=== PATIENT | female | born 1950 | race Caucasian/White ===

== ENCOUNTER → 2017-04-16 | Outpatient (CLI) | payer OTHER ==
[~2017-04-16] MED LIST: ASPIR 8181 MG PO; ATENOLOL50 MG PO; BENICAR HCT 201 EACH PO; ESCITALOPRAM OX20 MG PO; NEXIUM40 MG PO; ZOLPIDEM TARTRA10 MG PO
--- NOTE | 2017-04-30 08:24 | Diagnostic Imaging Report ---
#[id number] - MGSCRBIL #BILATERAL DIGITAL SCREENING MAMMOGRAM WITH CAD: 04/16/2017 Comparison is made to exams dated: 10/11/2016 mammogram, 03/28/2016 mammogram and 02/14/2016 mammogram - [facility]. Current study contains 8 films. There are scattered fibroglandular elements in both breasts. Current study was also evaluated with a Computer Aided Detection (CAD) system. There are benign calcifications in both breasts. A cardiac device in the left chest partially obscures evaluation of the left axilla. No significant masses, calcifications, or other findings are seen in either breast. There has been no significant interval change. IMPRESSION: BENIGN There is no mammographic evidence of malignancy. A 1 year screening mammogram is recommended. The patient will be notified by letter of the results. Davian Rosales Jr., D.O. cw/:04/29/2017 11:04:29 Silver Buffer: Corie WALLACE(Vicenta)(Cash), [facility] letter sent: Compared to Prior B9 Mammogram BI-RADS: 2 Benign
== END ==
LOC: MAMMO 08:04
PROVIDERS: ATTEND Internal Medicine
DX: Z12.31 Encounter for screening mammogram for malignant neoplasm of breast (principal)
CPT/HCPCS: 77067

== ENCOUNTER → 2018-05-27 | Outpatient (CLI) | payer OTHER ==
--- NOTE | 2018-05-27 17:33 | Diagnostic Imaging Report ---
EXAM: CT Chest WITHOUT contrast INDICATION: ^CHEST PAIN. Left-sided pain x1 month. COMPARISON: None TECHNIQUE: Chest was scanned utilizing a multidetector helical scanner from the lung apex through the level of the adrenal glands without administration of IV contrast. Absence of intravenous contrast decreases sensitivity for detection of lymphadenopathy and vascular pathology. Coronal and sagittal reformations were obtained. Routine protocol was performed. IV CONTRAST: None COMPLICATIONS: None RADIATION DOSE: Total DLP: 527.39 mGy*cm Estimated effective dose: (DLP x 0.014 x size factor) mSv CTDIvol has been reviewed. It is below the limits set by the Radiation Protocol Committee (RPC). Dose modulation, iterative reconstruction, and/or weight based adjustment of the mA/kV was utilized to reduce the radiation dose to as low as reasonably achievable. FINDINGS: LINES/ TUBES: Left-sided ICD. LUNGS AND AIRWAYS: Mild subpleural reticulation predominantly along the lung bases. No bronchiectasis. Airways are normal. 5.3 mm nodule in the right lower lobe (series 3, image 74). 2.7 mm nodule in the left lower lobe (series 3, image 89). PLEURA: The pleural spaces are clear. HEART AND MEDIASTINUM: The thyroid gland is normal. No mediastinal, hilar or axillary lymphadenopathy. The heart is normal in size. There is no pericardial effusion. There are mild atherosclerotic calcifications in the aorta and coronary arteries. UPPER ABDOMEN: Unremarkable. BONES: The visualized bony thorax is within normal limits. SOFT TISSUES: Unremarkable. IMPRESSION: 1. No acute abnormalities identified. 2. Mild fibrosis in the lung bases, which is within normal limits for age. 3. 2 small pulmonary nodules. Recommend one-year follow-up chest CT. Signed by: Dr. Flaco Fry M.D. on 05/27/2018 5:30 PM
== END ==
LOC: CT 15:32
PROVIDERS: ATTEND Internal Medicine Interventional Cardiology
DX: R07.9 Chest pain, unspecified (principal)
CPT/HCPCS: 71250

== ENCOUNTER → 2018-06-19 | Outpatient (CLI) | payer OTHER | LOC: MAMMO 11:31 | PROVIDERS: ATTEND Obstetrics & Gynecology | DX: Z12.31 Encounter for screening mammogram for malignant neoplasm of breast (principal) | CPT/HCPCS: 77067 ==

== ENCOUNTER 2019-10-28 17:30 | Observation (INO) | payer OTHER ==
[~2019-10-28] VITALS: Ht 165.1 cm; Wt 93.0 kg
--- OUTSIDE RECORDS SUMMARY | 2019-10-28 18:07 | XMS REPORT | Continuity of Care Document ---
Author Author [facility] t Organization [facility] Address [address] [place] [phone] Phone Unavailable Care Team Providers Care Soft Metals Hand Engraver Name Role Phone JAIME MANZANO Attphys Unavailable PIOTRJEFF Attphys Unavailable EDMUND, VERNELL Attphys Unavailable Problems This patient has no known problems. Allergies, Adverse Reactions, Alerts This patient has no known allergies or adverse reactions. Medications This patient has no known medications. Procedures This patient has no known procedures. Results Test Description Test Time Test Comments Results Result Comments Source MAMMOGRAPHY DIGITAL SCR BILAT 2018-06-19 12:35:00 [place] [address] Patient Name: LEYDA CARLTON MR #: [id number] : 1950 Age/Sex: 68/F Req #: [id number] [facility] Physician: Ordered by: JAIME MANZANO MD Report #: [id number] Location: MAMMO Room/Bed: Procedure: [id number] MG/MAMMOGRAPHY DIGITAL SCR BILAT Exam Date: 06/19/18 Exam Time: 1216 REPORT STATUS: Signed #[id number] - MGSCRBIL #BILATERAL DIGITAL SCREENING MAMMOGRAM WITH CAD: 06/19/2018 CLINICAL: Routine screening. Comparison is made to exams dated: 04/16/2017 mammogram, 10/11/2016 mammogram and 03/28/2016 mammogram - [facility]. Current study contains 8 films. There are scattered fibroglandular elements in both breasts. Current study was also evaluated with a Computer Aided Detection (CAD) system. There are benign calcifications in both breasts. A cardiac device is again noted on the left side. No significant masses, calcifications, or other findings are seen in either breast. There has been no significant interval change. IMPRESSION: BENIGN There is no mammographic evidence of malignancy. A 1 year screening mammogram is recommended. The patient will be notified by letter of the results. Sloane Rosales Jr., D.O. cw/:07/08/2018 08:37:13 Construction Project Assistant: Corie VALDEZ)(M), [facility] letter sent: Compared to Prior B9 Mammogram BI-RADS: 2 Benign Dictated By: SLOANE ROSALES DO 0837 Transcribed By: ALVIN on 07/08/18 0837 COPY TO: JAIME MANZANO MD CT CHEST WO 2018-05-27 17:23:00 [place] [address] Patient Name: LEYDA CARLTON MR #: [id number] : 1950 Age/Sex: 68/F Req #: [id number] Adm Physician: Ordered by: JEFF SALDAÑA MD Report #: [id number] Location: CT Room/Bed: Procedure: [id number] CT/CT CHEST WO Exam Date: 05/27/18 Exam Time: 1620 REPORT STATUS: Signed EXAM: CT Chest WITHOUT contrast INDICATION: CHEST PAIN. Left-sided pain x1 month. COMPARISON: None TECHNIQUE: Chest was scanned utilizing a multidetector helical scanner from the lung apex through the level of the adrenal glands without administration of IV contrast. Absence of intravenous contrast decreases sensitivity for detection of lymphadenopathy and vascular pathology. Coronal and sagittal reformations were obtained. Routine protocol was performed. IV CONTRAST: None COMPLICATIONS: None RADIATION DOSE: Total DLP: 527.39 mGy*cm Estimated effective dose: (DLP x 0.014 x size factor) mSv CTDIvol has been reviewed. It is below the limits set by the Radiation Protocol Committee (RPC). Dose modulation, iterative reconstruction, and/or weight based adjustment of the mA/kV was utilized to reduce the radiation dose to as low as reasonably achievable. FINDINGS: LINES/ TUBES: Left- sided ICD. LUNGS AND AIRWAYS: Mild subpleural reticulation predominantly along the lung bases. No bronchiectasis. Airways are normal. 5.3 mm nodule in the right lower lobe (series 3, image 74). 2.7 mm nodule in the left lower lobe (series 3, image 89). PLEURA: The pleural spaces are clear. HEART AND MEDIASTINUM: The thyroid gland is normal. No mediastinal, hilar or axillary lymphadenopathy. The heart is normal in size. There is no pericardial effusion. There are mild atherosclerotic calcifications in the aorta and coronary arteries. UPPER ABDOMEN: Unremarkable. BONES: The visualized bony thorax is within normal limits. SOFT TISSUES: Unremarkable. IMPRESSION: 1. No acute abnormalities identified. 2. Mild fibrosis in the lung bases, which is within normal limits for age. 3. 2 small pulmonary nodules. Recommend one-year follow-up chest CT. Signed by: Dr. Miranda De Paz M.D. on 05/27/2018 5:30 PM Dictated By: MIRANDA DE PAZ MD 29 Transcribed By: ANNIA on 05/27/181729 COPY TO: JEFF SALDAÑA MD MAMMOGRAPHY DIGITAL SCR [place] [address] Patient Name: LEYDA CARLTON MR #: [id number] : 1950 Age/Sex: 67/F Req #: [id number] Adm Physician: Ordered by: VERNELL SHAFFER MD Report #: [id number] Location: MAMMO Room/Bed: Procedure: [id number] MG/MAMMOGRAPHY DIGITAL SCR BILAT Exam Date: 04/16/17 Exam Time: 0823 REPORT STATUS: Signed #[id number] - MGSCRBIL #BILATERAL DIGITAL SCREENING MAMMOGRAM WITH CAD: 04/16/2017 Comparison is made to exams dated: 10/11/2016 mammogram, 03/28/2016 mammogram and 02/14/2016 mammogram - [facility]. Current study contains 8 films. There are scattered fibroglandular elements in both breasts. Current study was also evaluated with a Computer Aided Detection (CAD) system. There are benign calcifications in both breasts. A cardiac device in the left chest partially obscures evaluation of the left axilla. No significant masses, calcifications, or other findings are seen in either breast. There has been no significant interval change. IMPRESSION: BENIGN There is no mammographic evidence of malignancy. A 1 year screening mammogram is recommended. The patient will be notified by letter of the results. Sloane Rosales Jr., D.O. cw/:04/29/2017 11:04:29 Construction Project Assistant: Corie WALLACE(R)(M), [facility] ton er sent: Compared to Prior B9 Mammogram BI-RADS: 2 Benign Dictated By: SLOANE ROSALES DO 03 Transcribed By: ALVIN on 04/29/171103 COPY TO: VERNELL SHAFFER MD
--- NOTE | 2019-10-28 18:15 | Emergency Department Note ---
History of Present Illnes History of Present Illness Chief Complaint: Neurological History of Present Illness This is a 69 year old female Chief Complaint Comment sent over from dr de leon's office for htn and r/o cva per pt not acting like herself pt normally a & o x 3 but symptoms started 2 days ago with confusion, fatigue, disorientation, forgetfulness states she felt pain in left shoulder blade and she took muscle relaxer and that's when pt became ams c/o non radiating sub sternal cp with sob denies hx of cva hx of mi, htn denies resp hx former smoker social drinker no facial droop noted no pronator drift 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 Historian: Patient, Family Member Arrival Mode: Car Manager Chemical Required: No Onset (how long ago): day(s) (2) Location: Mental status Quality: confusion Radiation: Reports other (Pain to right shoulder) Severity: moderate Onset quality: gradual Duration (how long): day(s) (2) Timing of current episode: constant Progression: unchanged Chronicity: new Context: Denies recent illness, Denies non-compliance w/ medications Relieving factors: none Exacerbating factors: none Associated symptoms: Reports denies other symptoms, Reports malaise, Reports weakness Treatments prior to arrival: none Past Medical/Family History Physician Review I have reviewed the patient's past medical and family history. Any updates have been documented here. Past Medical History Recent Fever: No Clinical Suspicion of Infectio: No New/Unexplained Change in Ment: Yes Past Medical History: Hypertension, Diabetes, DC, Hyperlipedemia Other Medical History: REFLUX, BACK PAIN Other Surgery: RT KNEE REPLACEMENT, LT FOOT, CARPAL TUNNEL Social History Physically hurt or threatened: No Other Last Tetanus: >10 YEARS Review of Systems Review of Systems Constitutional: Reports no symptoms, Reports malaise, Reports weakness EENTM: Reports no symptoms Cardiovascular: Reports no symptoms Respiratory: Reports no symptoms Gastrointestinal: Reports no symptoms Genitourinary: Reports no symptoms Musculoskeletal: Reports other (R shoulder pain) Integumentary: Reports no symptoms Neurological: Reports weakness Psychological: Reports as per HPI Endocrine: Reports no symptoms Hematological/Lymphatic: Reports no symptoms Physical Exam Related Data Allergies: Uncoded Allergies: MYCINS (ABX ??) (Allergy, Unknown, 10/28/19) Triage Vital Signs Vital Signs Date Time Temp Pulse Resp B/P (MAP) Pulse Ox O2 Delivery O2 Flow Rate FiO2 10/28/19 17:36 98.7 86 16 200/107 98 Room Air Vital signs reviewed: Yes Physical Exam CONSTITUTIONAL Constitutional: Present well-developed, Present well-nourished HENT HENT: Present normocephalic, Present atraumatic, Present oropharynx clear/moist, Present nose normal HENT L/R: Present left ext ear normal, Present right ext ear normal EYES Eyes: Reports PERRL, Reports conjunctivae normal NECK Neck: Present ROM normal PULMONARY Pulmonary: Present effort normal, Present breath sounds normal CARDIOVASCULAR Cardiovascular: Present regular rhythm, Present heart sounds normal, Present capillary refill normal, Present normal rate GASTROINTESTINAL Abdominal: Present soft, Present nontender, Present bowel sounds normal GENITOURINARY Genitourinary: Present exam deferred SKIN Skin: Present warm, Present dry MUSCULOSKELETAL Musculoskeletal: Present ROM normal NEUROLOGICAL Neurological: Present alert, Present oriented x 3, Present no gross motor or sensory deficits PSYCHOLOGICAL Psychological: Present mood/affect normal, Present judgement normal Procedures 12 Lead ECG Interpretation ECG Interpretation : Manager Chemical: Interpreted by ED physician Date: Oct 28, 2019 Rhythm: sinus rhythm Rate: normal QRS axis: left ST segment flattening: aVL T waves normal: Yes Clinical Impression: abnormal ECG Assessment & Plan Medical Decision Making MDM 59-year-old female who presents to the emergency department for confusion and hypertension. Symptoms have been progressing over the last few days. Examination shows a confused female but is oriented to self and place. She denies any symptoms at this time except for some left shoulder pain. Initial differential includes urinary tract infection versus hypertensive encephalopathy versus stroke versus ACS. Workup significant for urinary tract infection. She is given 10 mg of IV labetalol with improvement in her blood pressures. 1 g of Rocephin given. Suspect sepsis at this time. Patient was discussed with Dr. Kearns who has agreed to admit for UTI. Patient is appropriate for transfer to floor. Reassessment Reassessment time: 18:15 Reassessment Unchanged, NAD Assessment & Plan Final Impression: (1) UTI (urinary tract infection) Depart Disposition: ADMITTED Last Vital Signs Date Time Temp Pulse Resp B/P (MAP) Pulse Ox O2 Delivery O2 Flow Rate FiO2 10/28/19 17:36 98.7 86 16 200/107 98 Room Air Home Meds Reported Medications Aspirin (ASPIR 81) 81 Mg Tablet.dr, 81 MG PO DAILY 08/23/14 Esomeprazole Magnesium (NEXIUM) 40 Mg Capsule.dr, 40 MG PO BID PROTONIX THERAPEUT[facility] SUBSTITUTE FOR NEXIUM PER [facility] 08/23/14 Olmesartan/Hydrochlorothiazide (BENICAR HCT 20-12.5 MG TABLET) 1 Each Tablet, 1 TAB PO DAILY 08/23/14 Escitalopram Oxalate (ESCITALOPRAM OXALATE) 20 Mg Tablet, 20 MG PO DAILY 08/23/14 Zolpidem Tartrate (ZOLPIDEM TARTRATE) 10 Mg Tablet, 10 MG PO BEDTIME, #30 TAB 08/23/14 Atenolol (ATENOLOL) 50 Mg Tablet, 50 MG PO DAILY 08/23/14 DIANA BETTS MD Oct 28, 2019 18:15
[2019-10-28 18:24] LABS: BASOPHILS # (AUTO) 0.1 (0.0-0.1); BASOPHILS % 0.6 % (0.0-1.0); EOSINOPHILS # (AUTO) 0.1 (0.0-0.4); EOSINOPHILS % 0.6 % (0.0-6.0); HEMATOCRIT 47.2 % (34.2-44.1); HEMOGLOBIN 14.9 g/dL (12.0-16.0); LYMPHOCYTES # (AUTO) 2.1 (1.0-3.2); LYMPHOCYTES % 27.6 % (18.0-39.1); MEAN CORPUSCULAR HEMOGLOBIN 27.3 pg (28-32); MEAN CORPUSCULAR HGB CONC 31.6 g/dL (31-35); MEAN CORPUSCULAR VOLUME 86.6 fL (81-99); MONOCYTES # (AUTO) 0.7 (0.2-0.8); MONOCYTES % 9.2 % (4.4-11.3); NEUTROPHILS # (AUTO) 4.7 (2.1-6.9); NEUTROPHILS % 61.6 % (38.7-80.0); PLATELET COUNT 157 x10e3/uL (140-360); RED BLOOD COUNT 5.45 x10e6/uL (3.6-5.1); RED CELL DISTRIBUTION WIDTH 14.3 % (11.7-14.4)
[2019-10-28 18:32] LABS: INR 0.91; PARTIAL THROMBOPLASTIN TIME 32.4 seconds (23.8-35.5); PROTHROMBIN TIME 12.7 seconds (11.9-14.5)
[2019-10-28] MEDS ORDERED: LABETALOL HCL 5 MG/ML 20ML VIAL IV STA ×2 (18:40→21:06)
[2019-10-28 18:41] LABS: ALBUMIN 4.4 g/dL (3.5-5.0); ALBUMIN/GLOBULIN RATIO 1.3 (0.8-2.0); ANION GAP 19.6 mmol/L (8-16); CALCIUM 10.6 mg/dL (8.4-10.2); CREATININE, SERUM 1.05 mg/dL (0.57-1.11); POTASSIUM 3.6 mmol/L (3.5-5.1)
[2019-10-28 18:48] LABS: CREATINE KINASE MB 2.5 ng/mL (0-5.0)
--- NOTE | 2019-10-28 19:24 | Diagnostic Imaging Report ---
EXAMINATION: CHEST SINGLE (PORTABLE) INDICATION: Chest pain. COMPARISON: Chest x-ray from 08/23/2014. FINDINGS: TUBES and LINES: Cardiac pacing device which is unchanged from prior examination. LUNGS: Normal lung volumes. Lungs are clear. No consolidations. PLEURA: No pleural effusion or pneumothorax. HEART AND MEDIASTINUM: The cardiomediastinal silhouette is within normal limits with atherosclerotic calcification of thoracic aorta. BONES AND SOFT TISSUES: No acute osseous lesion. Soft tissues are unremarkable. UPPER ABDOMEN: No free air under the diaphragm. IMPRESSION: No acute thoracic radiographic abnormality. Signed by: Kenton Ventura MD on 10/28/2019 7:21 PM
--- NOTE | 2019-10-28 19:25 | Diagnostic Imaging Report ---
Exam: Head CT without contrast History: Possible stroke Comparison studies: None Technique: Axial images were obtained from the skull base to the vertex. Coronal and sagittal images reconstructed from the axial data. Dose modulation, iterative reconstruction, and/or weight based adjustment of the mA/kV was utilized to reduce the radiation dose to as low as reasonably achievable. Radiation dose: Total DLP: 832.18 mGy*cm. Estimated effective dose: DLP x 0.015 Intravenous contrast: None Findings: Scalp: No abnormalities. Bones: No fractures, blastic or lytic lesions. Brain sulci: Appropriate for age. Ventricles: Normal in size and configuration. No hydrocephalus. Extra-axial spaces: No masses, no fluid collection. Parenchyma: No abnormal densities. No masses, hemorrhage, acute or chronic vascular insults. Sellar/suprasellar region: No abnormalities. Craniocervical junction: Patent foramen magnum. No Chiari one malformation. Incidental findings: Atherosclerotic calcifications in the carotid siphons. IMPRESSION: No acute intracranial abnormalities. Signed by: Dr. Carrington Farnsworth M.D. on 10/28/2019 7:22 PM
[2019-10-28 19:41] LABS: AMPHETAMINES SCREEN,URINE NEGATIVE (NEGATIVE); BENZODIAZEPINES SCREEN,URINE NEGATIVE (NEGATIVE); CLARITY,URINE CLOUDY (CLEAR); COLOR,URINE YELLOW (YELLOW); PHENCYCLIDINE SCREEN,URINE NEGATIVE (NEGATIVE)
[2019-10-28 19:42] LABS: BILIRUBIN,URINE 1+ (NEGATIVE); KETONES,URINE 2+ (NEGATIVE); LEUKOCYTE ESTERASE ,URINE NEGATIVE (NEGATIVE); NITRITE,URINE POSITIVE (NEGATIVE); PROTEIN,URINE DIPSTICK 2+ (NEGATIVE); URINE UROBILINOGEN 1 mg/dL (0.2 - 1)
[2019-10-28 19:49] LABS: BACTERIA,URINE MANY /HPF; EPITHELIAL CELLS,URINE FEW /LPF; RENAL EPITHELIAL CELLS,URINE FEW; TRANSITIONAL EPI CELLS,URINE FEW
[2019-10-28] MEDS ORDERED: CEFTRIAXONE SOD 1 GM/NS 50 ML 50 ML IV ONE (20:15)
[2019-10-28] MEDS ORDERED: FENTANYL CITRATE/PF 100MCG/2 ML INJ IV ONE (20:45)
--- OUTSIDE RECORDS SUMMARY | 2019-10-28 21:25 | XMS REPORT | Continuity of Care Document ---
Author Author [facility] t Organization [facility] Address [address] [place] [address] Phone Unavailable Care Team Providers Care Desk Officer Name Role Phone Myra Hanna Attphys Unavailable JOSE JUAN, JAIME Attphys Unavailable PIOTR, JEFF Attphys Unavailable EDMUND, VERNELL Attphys Unavailable Problems This patient has no known problems. Allergies, Adverse Reactions, Alerts This patient has no known allergies or adverse reactions. Medications This patient has no known medications. Procedures This patient has no known procedures. Results Test Description Test Time Test Comments Results Result Comments Source CT BRAIN WO 2019-10-28 19:20:00 [place] [address] Patient Name: LEYDA CARLTON MR #: [id number] : 1950 Age/Sex: 69/F Req #: [id number] Adm Physician: Ordered by: Diana Hanna MD Report #: [id number] Location: ER Room/Bed: Procedure: [id number] CT/CT BRAIN WO Exam Date: 10/28/19 Exam Time: 1800 REPORT STATUS: Signed Exam: Head CT without contrast History: Possible stroke Comparison studies: None Technique: Axial images were obtained from the skull base to the vertex. Coronal and sagittal images reconstructed from the axial data. Dose modulation, iterative reconstruction, and/or weight based adjustment of the mA/kV was utilized to reduce the radiation dose to as low as reasonably achievable. Radiation dose: Total DLP: 832.18 mGy*cm. Estimated effective dose: DLP x 0.015 Intravenous contrast: None Findings: Scalp: No abnormalities. Bones: No fractures, blastic or lytic lesions. Brain sulci: Appropriate for age. Ventricles: Normal in size and configuration. No hydrocephalus. Extra-axial spaces: No masses, no fluid collection. Parenchyma: No abnormal densities. No masses, hemorrhage, acute or chronic vascular insults. Sellar/suprasellar region: No abnormalities. Craniocervical junction: Patent foramen magnum. No Chiari one malformation. Incidental findings: Atherosclerotic calcifications in the carotid siphons. IMPRESSION: No acute intracranial abnormalities. Signed by: Dr. Romario Farnsworth M.D. on 10/28/2019 7:22 PM Dictated By: ROMARIO FARNSWORTH MD 21 Transcribed By: ANNIA on 10/28/191921 COPY TO: DIANA HANNA MD CHEST SINGLE (PORTABLE) 2019-10-28 19:17:00 [place] [address] Patient Name: LEYDA CARLTON MR #: [id number] : 1950 Age/Sex: 69/F Req #: [id number] Adm Physician: Ordered by: Diana Hanna MD Report #: [id number] Location: ER Room/Bed: Procedure: [id number] DX/CHEST SINGLE (PORTABLE) Exam Date: Exam Time: REPORT STATUS: Signed EXAMINATION: CHEST SINGLE (PORTABLE) INDICATION: Chest pain. COMPARISON: Chest x-ray from 08/23/2014. FINDINGS: TUBES and LINES: Cardiac pacing device which is unchanged from prior examination. LUNGS: Normal lung volumes. Lungs are clear. No consolidations. PLEURA: No pleural effusion or pneumothorax. HEART AND MEDIASTINUM: The cardiomediastinal silhouette is within normal limits with atherosclerotic calcification of thoracic aorta. BONES AND SOFT TISSUES: No acute osseous lesion. Soft tissues are unremarkable. UPPER ABDOMEN: No free air under the diaphragm. IMPRESSION: No acute t horacic radiographic abnormality. Signed by: Albino Yoder MD on 10/28/2019 7:21 PM Dictated By: ALBINO YODER MD 20 Transcribed By: ANNIA on 10/28/191920 COPY TO: DIANA HANNA MD MAMMOGRAPHY DIGITAL SCR BILAT 2018-06-19 12:35:00 [place] [address] Patient Name: LEYDA CARLTON MR #: [id number] : 1950 Age/Sex: 68/F Req #: [id number] Adm Physician: Ordered by: JAIME MANZANO MD Report #: [id number] Location: MAMMO Room/Bed: Procedure: [id number] MG/MAMMOGRAPHY DIGITAL SCR BILAT Exam Date: 06/19/18 Exam Time: 1216 REPORT STATUS: Signed #[id number] - MGSCRBIL #BILATERAL DIGITAL SCREENING MAMMOGRAM WITH CAD: 06/19/2018 CLINICAL: Routine screening. Comparison is made to exams dated: 04/16/2017 mammogram, 10/11/2016 mammogram and 03/28/2016 mammogram - [facility]. Current study contains 8 films. [...] be notified by letter of the results. Davian Rosales Jr., D.O. cw/:07/08/2018 08:37:13 Catering And Events Manager: Corie VALDEZ)(Cash), [facility] letter sent: Compared to Prior B9 Mammogram BI-RADS: 2 Benign Dictated By: DAVIAN ROSALES DO 08 Transcribed By: ALVIN on 07/08/18836 COPY TO: JAIME MANZANO MD CT CHEST WO 2018-05-27 17:23:00 [place] [address] Patient Name: LEYDA CARLTON MR #: [id number] : 1950 Age/Sex: 68/F Req #: [id number] Adm Physician: Ordered by: JEFF SALDAÑA MD Report #: [id number] Location: CT Room/Bed: Procedure: [id number] CT/CT CHEST WO Exam Date: 05/27/18 Exam [...] one-year follow-up chest CT. Signed by: Dr. Flaco De Paz M.D. on 05/27/2018 5:30 PM Dictated By: FLACO DE PAZ MD 29 Transcribed By: ANNIA on 05/27/181729 COPY TO: JEFF SALDAÑA MD MAMMOGRAPHY DIGITAL SCR [place] [address] Patient Name: LEYDA CARLTON MR #: [id number] : 1950 Age/Sex: 67/F Req #: [id number] Adm Physician: Ordered by: VERNELL SHAFFER MD Report #: [id number] Location: MAMMO Room/Bed: Procedure: [id number] MG/MAMMOGRAPHY DIGITAL SCR BILAT Exam Date: 04/16/17 Exam Time: 08 REPORT STATUS: Signed #[id number] - MGSCRBIL #BILATERAL DIGITAL SCREENING MAMMOGRAM WITH CAD: 04/16/2017 Comparison is made to exams dated: 10/11/2016 mammogram, 03/28/2016 mammogram and 02/14/2016 mammogram - [facility]. Current study contains 8 films. [...] be notified by letter of the results. Davian Rosales Jr., D.O. cw/:04/29/2017 11:04:29 Catering And Events Manager: Corie WALLACE(Vicenta)(M), [facility] ton er sent: Compared to Prior B9 Mammogram BI-RADS: 2 Benign Dictated By: DAVIAN ROSALES DO 1103 Transcribed By: ALVIN on 04/29/170 COPY TO: VERNELL SHAFFER MD
[2019-10-28] MEDS ORDERED: HYDRALAZINE HCL 20 MG/ML VIAL IV STA (22:15)
[2019-10-28] MEDS ORDERED: TEMAZEPAM 15 MG CAP PO PRN (23:30)
[2019-10-29] VITALS (11 sets, daily range): BP systolic 152–189; BP diastolic 69–92
[2019-10-29] MEDS ORDERED: MORPHINE SULFATE INJ 4 MG/ML INJ 1ML IV PRN
--- NOTE | 2019-10-29 01:48 | NUR ---
PT IS TRANSFERRED FROM ER .PT IS AOX3 RESPIRATIONS ARE EVEN AND UNLABORED .SKIN WARM AND DRY TO TOUCH .LEFT AC 20 G S/L .ORIENTED THE PT TO THE ENVIRONMENT ,ASSESSMENT DONE ,PT DENIES PAIN AT THIS TIME .C/O OF INSOMNIA .CALLED DR JESUS RAD TECHNOLOGIST ([place] ) AND GOT THE ORDER RESTORIL .MEDICATED THE PT WITH RESTORIL .PT B/P WAS HIGH AND GIVEN ORDERED BLOOD PRESSURE MEDICATION B/P IS REDUCED .PT RESTING .PT HAS NO HOME MEDICATION LIST ,CALLED PATIENT' SPOUSE .AND TOLD TO BRING THE LIST IN THE MORNING .CONTINUE TO MONITOR
[2019-10-29 05:15] LABS: BASOPHILS % 0.6 % (0.0-1.0); EOSINOPHILS # (AUTO) 0.1 (0.0-0.4); EOSINOPHILS % 1.8 % (0.0-6.0); HEMATOCRIT 45.1 % (34.2-44.1); HEMOGLOBIN 14.1 g/dL (12.0-16.0); LYMPHOCYTES # (AUTO) 2.3 (1.0-3.2); LYMPHOCYTES % 32.2 % (18.0-39.1); MEAN CORPUSCULAR HEMOGLOBIN 27.6 pg (28-32); MEAN CORPUSCULAR HGB CONC 31.3 g/dL (31-35); MEAN CORPUSCULAR VOLUME 88.3 fL (81-99); MONOCYTES # (AUTO) 0.8 (0.2-0.8); MONOCYTES % 11.2 % (4.4-11.3); NEUTROPHILS # (AUTO) 3.8 (2.1-6.9); NEUTROPHILS % 53.8 % (38.7-80.0); PLATELET COUNT 134 x10e3/uL (140-360); RED BLOOD COUNT 5.11 x10e6/uL (3.6-5.1); RED CELL DISTRIBUTION WIDTH 14.5 % (11.7-14.4)
[2019-10-29 05:30] LABS: ALBUMIN 3.7 g/dL (3.5-5.0); ALBUMIN/GLOBULIN RATIO 1.2 (0.8-2.0); ANION GAP 14.4 mmol/L (8-16); CALCIUM 9.8 mg/dL (8.4-10.2); CREATININE, SERUM 0.98 mg/dL (0.57-1.11); POTASSIUM 3.4 mmol/L (3.5-5.1)
--- NOTE | 2019-10-29 05:50 | NUR ---
PT RESTING DENIES PAIN CALL LIGHT WITHIN REACH ,CONTINUE TO MONITOR
--- NOTE | 2019-10-29 07:05 | NUR ---
RCD PT AT BED PT IS ALERT AND ORIENTED IV PATENT BY SALINE FLUSH , BED LOW AND LOCKED CALL LIGHT IN REACH
--- NOTE | 2019-10-29 07:06 | NUR ---
BEDSIDE REPORT GIVEN TO THE ONCOMING NURSE
[2019-10-29] MEDS ORDERED: METOPROLOL TART50 MG PO (08:59)
[2019-10-29] MEDS ORDERED: METFORMIN HCL500 MG PO (08:59)
[2019-10-29] MEDS ORDERED: INVOKANA100 MG PO (08:59)
[2019-10-29] MEDS ORDERED: POTASSIUM CHLORIDE 20 MEQ TAB CR PO NR (09:00)
[2019-10-29] MEDS ORDERED: ONDANSETRON HCL INJ 2MG/ML 2ML 2 MG/ML VIAL IV PRN (09:30)
[2019-10-29] MEDS ORDERED: DEXTROSE 50% SYRINGE 50 ML IV PRN (09:30)
[2019-10-29] MEDS ORDERED: ACETAMINOPHEN 325 MG TAB PO PRN (09:30)
[2019-10-29] MEDS ORDERED: HYDRALAZINE HCL 20 MG/ML VIAL IV PRN (09:30)
[2019-10-29] MEDS ORDERED: ATENOLOL 50 MG TAB PO SCH (09:45)
[2019-10-29] MEDS: METOPROLOL TARTRATE 50 MG TAB PO SCH (10:00)
[2019-10-29] MEDS: PANTOPRAZOLE SOD 40 MG TABEC PO SCH ×2 (10:00→16:30)
[2019-10-29] MEDS: ACETAMINOPHEN/CODEINE 300MG - 30MG TAB PO PRN ×2 (10:05→15:49)
[2019-10-29] MEDS: OLMESARTAN 20 MG TAB PO SCH (10:30)
[2019-10-29] MEDS: CEFTRIAXONE SOD 1 GM/NS 50 ML 50 ML IV SCH (10:30)
[2019-10-29] MEDS: HYDROCHLOROTHIAZIDE 25 MG TAB PO SCH (10:30)
--- NOTE | 2019-10-29 11:00 | NUR ---
TALKED TO PHARMACIST ( JOAN ) AND UPDATE THE MEDS AND NOTIFIED ROSETTA WHITE
[2019-10-29] MEDS ORDERED: SODIUM CHLORIDE 0.9% 250ML 250 ML ONE (11:29)
[2019-10-29] MEDS: INSULIN LISPRO 100 UNIT/1 ML 3ML VIAL SQ SCH ×3 (11:30→21:00)
[2019-10-29] MEDS: ESCITALOPRAM OXALATE 10 MG TAB PO SCH (12:00)
--- NOTE | 2019-10-29 16:08 | NUR ---
SCDS ON BOTH LEGS
--- NOTE | 2019-10-29 18:48 | NUR ---
PT RESTING ON BED BED SIDE REPORT GIVEN TO ONCOMING NURSE
--- NOTE | 2019-10-29 19:23 | NUR ---
RECEIVED PT IN BED ,DENIES PAIN NO ACUTE DISTRESS NOTED ,CALL LIGHT WITH IN REACH .CONTINUE TO MONITOR
[2019-10-29] MEDS ORDERED: ZOLPIDEM TARTRATE 10 MG TAB PO PRN (21:00)
[2019-10-30] VITALS (8 sets, daily range): BP systolic 106–171; BP diastolic 50–82
[2019-10-30] MEDS ORDERED: METFORMIN HCL500 MG PO (00:58)
[2019-10-30] MEDS ORDERED: LEXAPRO20 MG PO (00:58)
[2019-10-30] MEDS ORDERED: AMLODIPINE BESYL5 MG PO (00:58)
[2019-10-30] MEDS ORDERED: MELOXICAM7.5 MG PO (00:58)
--- NOTE | 2019-10-30 06:03 | NUR ---
PT RESTING DENIES PAIN CALL LIGHT WITHIN REACH ,CONTINUE TO MONITOR
--- NOTE | 2019-10-30 06:52 | NUR ---
RECEIVED BEDSIDE SHIFT REPORT FROM OFF GOING NURSE. PATIENT IS IN STABLE CONDITION. IV LINE IS PATENT. CALL LIGHT WITHIN REACH. BED IN THE LOWEST POSITION.
--- NOTE | 2019-10-30 07:22 | NUR ---
BED SIDE REPORT GIVEN TO THE ONCOMING NURSE
[2019-10-30] MEDS: ACETAMINOPHEN/CODEINE 300MG - 30MG TAB PO PRN ×2 (07:25→18:10)
[2019-10-30] MEDS: INSULIN LISPRO 100 UNIT/1 ML 3ML VIAL SQ SCH ×4 (08:06→21:00)
[2019-10-30] MEDS: ESCITALOPRAM OXALATE 10 MG TAB PO SCH (08:39)
[2019-10-30] MEDS: OLMESARTAN 20 MG TAB PO SCH (08:39)
[2019-10-30] MEDS: HYDROCHLOROTHIAZIDE 25 MG TAB PO SCH (08:39)
[2019-10-30] MEDS: PANTOPRAZOLE SOD 40 MG TABEC PO SCH ×2 (08:39→16:30)
[2019-10-30] MEDS: METOPROLOL TARTRATE 50 MG TAB PO SCH (08:40)
[2019-10-30] MEDS ORDERED: OLMESARTAN 20 MG TAB PO SCH (09:00)
[2019-10-30] MEDS ORDERED: HYDROCHLOROTHIAZIDE PO SCH (09:00)
[2019-10-30] MEDS ORDERED: ASPIRIN 81 MG CHEW TAB PO SCH (09:00)
[2019-10-30] MEDS ORDERED: HYDROCHLOROTHIAZIDE 25 MG TAB PO SCH (09:00)
[2019-10-30] MEDS ORDERED: [UNRECOGNIZED DRUG - OTHER] PO SCH (09:00)
[2019-10-30] MEDS ORDERED: OLMESARTAN PO SCH (09:00)
[2019-10-30] MEDS: CEFTRIAXONE SOD 1 GM/NS 50 ML 50 ML IV SCH (09:30)
--- NOTE | 2019-10-30 19:01 | NUR ---
BEDSIDE SHIFT REPORT GIVEN TO ONCOMING NURSE. PATIENT IS RESTING IN BED. NO ACUTE DISTRESS NOTED. CALL LIGHT WITHIN REACH. BED IN THE LOWEST POSITION.
--- NOTE | 2019-10-30 19:15 | NUR ---
Bedside shift report completed with morning nurse. Pt alert and oriented to name, lying in bed HOB 45 degrees. Pt denies pain at this time. Bed low and locked. Call light within reach.
[2019-10-31] VITALS: BP 128/80
[2019-10-31 04:00] VITALS: BP 163/77
[2019-10-31 05:12] LABS: BASOPHILS # (AUTO) 0.1 (0.0-0.1); BASOPHILS % 0.8 % (0.0-1.0); EOSINOPHILS # (AUTO) 0.3 (0.0-0.4); EOSINOPHILS % 3.8 % (0.0-6.0); HEMATOCRIT 45.2 % (34.2-44.1); HEMOGLOBIN 14.1 g/dL (12.0-16.0); LYMPHOCYTES # (AUTO) 2.1 (1.0-3.2); LYMPHOCYTES % 29.5 % (18.0-39.1); MEAN CORPUSCULAR HEMOGLOBIN 27.8 pg (28-32); MEAN CORPUSCULAR HGB CONC 31.2 g/dL (31-35); MEAN CORPUSCULAR VOLUME 89.2 fL (81-99); MONOCYTES # (AUTO) 0.8 (0.2-0.8); MONOCYTES % 11.4 % (4.4-11.3); NEUTROPHILS # (AUTO) 3.8 (2.1-6.9); NEUTROPHILS % 53.9 % (38.7-80.0); PLATELET COUNT 131 x10e3/uL (140-360); RED BLOOD COUNT 5.07 x10e6/uL (3.6-5.1); RED CELL DISTRIBUTION WIDTH 14.6 % (11.7-14.4)
[2019-10-31 05:35] LABS: ALBUMIN 3.7 g/dL (3.5-5.0); ALBUMIN/GLOBULIN RATIO 1.2 (0.8-2.0); ANION GAP 14.8 mmol/L (8-16); CALCIUM 9.9 mg/dL (8.4-10.2); CREATININE, SERUM 1.26 mg/dL (0.57-1.11); POTASSIUM 3.8 mmol/L (3.5-5.1)
[2019-10-31 07:50] VITALS: BP 162/74
[2019-10-31 08:17] VITALS: BP 162/74
[2019-10-31] MEDS: INSULIN LISPRO 100 UNIT/1 ML 3ML VIAL SQ SCH ×2 (09:14→11:30)
[2019-10-31] MEDS: PANTOPRAZOLE SOD 40 MG TABEC PO SCH (09:14)
[2019-10-31] MEDS: HYDROCHLOROTHIAZIDE 25 MG TAB PO SCH (09:14)
[2019-10-31] MEDS: OLMESARTAN 20 MG TAB PO SCH (09:14)
[2019-10-31] MEDS: ESCITALOPRAM OXALATE 10 MG TAB PO SCH (09:14)
[2019-10-31] MEDS: METOPROLOL TARTRATE 50 MG TAB PO SCH (09:15)
[2019-10-31] MEDS: ACETAMINOPHEN/CODEINE 300MG - 30MG TAB PO PRN (09:15)
[2019-10-31] MEDS: CEFTRIAXONE SOD 1 GM/NS 50 ML 50 ML IV SCH (09:15)
[2019-10-31] MEDS ORDERED: AMLODIPINE BESYLATE 5 MG TAB PO SCH (10:30)
[2019-10-31] MEDS ORDERED: HYDROCHLOROTHIAZIDE 25 MG TAB PO SCH (10:30)
[2019-10-31 11:43] VITALS: BP 99/74
--- NOTE | 2019-10-31 11:47 | NUR ---
Discharge instructions were given to the patient, she verbalized understanding. IV to the left FA was removed with tip intact.
--- NOTE | 2019-10-31 12:03 | NUR ---
Patient left the floor via wheelchair. She is discharged home.
--- NOTE | 2019-11-02 08:32 | Discharge Summary ---
ADMISSION DIAGNOSES: 1. Acute metabolic encephalopathy due to urinary tract infection present on admission. 2. Hypertension. 3. Depression. 4. Gastroesophageal reflux disease. 5. Type 2 diabetes. 6. Insomnia. DISCHARGE DIAGNOSES: 1. Acute metabolic encephalopathy due to urinary tract infection present on admission. 2. Hypertension. 3. Depression. 4. Gastroesophageal reflux disease. 5. Type 2 diabetes. 6. Insomnia. 7. Rule out urinary tract infection. 8. Acute toxic encephalopathy due to drug use versus muscle relaxer. 9. Rule out cerebrovascular accident. HISTORY: Type 2 diabetes, hypertension, depression, insomnia, GERD. PAST SURGICAL HISTORY: Tummy tuck, left great toe surgery, right total knee replacement, dental implant. FAMILY HISTORY: Two of the patient's brothers have diabetes and one has cancer. SOCIAL HISTORY: Occasional alcohol use. The patient denies drug use, but her urine drug screen was positive for cannabinoids. HOSPITAL COURSE: A 69-year-old female admits with complaints of high blood pressure with a systolic in the [address] Grubbs' office. Per ER report, the patient has also had AMS for the last few days. She admits to taking a muscle relaxer due to her left shoulder pain. She does not remember when she last took her blood pressure medicine. On admission, UA showed bacteria and WBC, and blood pressure was 200/107 and went as high as 223/106. She was resumed on her home medicine. Coronavirus was negative. She was started on Rocephin for suspected UTI. CT of the brain was negative. Chest x-ray was negative. Urine culture came back negative. Urine drug screen was positive for cannabinoids. After couple of days, the patient is feeling much better and AMS has resolved. She will follow up with primary care in 1 to 2 weeks and she will resume all home medication. She was advised that the AMS was likely due to the muscle relaxer versus the use of weed. At time of discharge, the patient is feeling much better and ready to discharge home. Dictated by Tasneem August NP MD DUTCH Christy/MODL /[id number]
== END 2019-10-31 12:30 | disposition home or self-care (01) ==
LOC: ER 18:06 → ERHOLD 21:13 → MED/SURG2 22:36
PROVIDERS: ADMIT Internal Medicine; ATTEND Internal Medicine
DX: N39.0 Urinary tract infection, site not specified (principal); G93.41 Metabolic encephalopathy; I10 Essential (primary) hypertension; K21.9 Gastro-esophageal reflux disease without esophagitis; G47.00 Insomnia, unspecified; E11.9 Type 2 diabetes mellitus without complications; F32.9 Major depressive disorder, single episode, unspecified; G92 Toxic encephalopathy; T48.205A Adverse effect of unspecified drugs acting on muscles, initial encounter; Z11.59 Encounter for screening for other viral diseases
CPT/HCPCS: 36415 ×4; 70450; 71045; 80053 ×3; 80307; 81001; 82140; 82550; 82553; 82948 ×3; 83605; 84484; 85025 ×3; 85610; 85730; 87086; 93005; 97116; 97161; 99284; G0378 ×4; J0360 ×2; J0696 ×4; J2270; J3010; J3490; J7050; S0164 ×3; U0002

== ENCOUNTER → 2019-12-08 | Day surgery (SDC) | payer OTHER ==
[2019-12-04 11:58] LABS: BASOPHILS % 0.5 % (0.0-1.0); EOSINOPHILS # (AUTO) 0.2 (0.0-0.4); EOSINOPHILS % 2.2 % (0.0-6.0); HEMATOCRIT 44.4 % (34.2-44.1); HEMOGLOBIN 14.2 g/dL (12.0-16.0); LYMPHOCYTES # (AUTO) 2.5 (1.0-3.2); LYMPHOCYTES % 32.7 % (18.0-39.1); MEAN CORPUSCULAR HEMOGLOBIN 28.4 pg (28-32); MEAN CORPUSCULAR VOLUME 88.8 fL (81-99); MONOCYTES # (AUTO) 0.8 (0.2-0.8); MONOCYTES % 10.6 % (4.4-11.3); NEUTROPHILS # (AUTO) 4.2 (2.1-6.9); NEUTROPHILS % 53.6 % (38.7-80.0); PLATELET COUNT 148 x10e3/uL (140-360); RED CELL DISTRIBUTION WIDTH 14.1 % (11.7-14.4)
[2019-12-04 12:18] LABS: ALBUMIN 4.4 g/dL (3.5-5.0); ALBUMIN/GLOBULIN RATIO 1.5 (0.8-2.0); ANION GAP 14.4 mmol/L (8-16); CALCIUM 9.8 mg/dL (8.4-10.2); CREATININE, SERUM 1.04 mg/dL (0.57-1.11); POTASSIUM 4.4 mmol/L (3.5-5.1)
[~2019-12-08] VITALS: Ht 167.6 cm; Wt 90.7 kg
[2019-12-08] VITALS (7 sets, daily range): BP systolic 133–168; BP diastolic 62–77
[~2019-12-08] MED LIST changes: +ALPRAZOLAM 0.5 MG TAB ONE; +AMLODIPINE BESYL5 MG PO; +BENICAR20 MG PO; +DIPHENHYDRAMINE HCL 25 MG CAP ONE; +FENTANYL CITRATE/PF 100MCG/2 ML INJ ONE; +HEPARIN SOD/SOD CHLORIDE 2,000 ML ONE; +INVOKANA100 MG PO; +IOPAMIDOL 370 MG/ML 200 ML INFUS..BTL INJ ONE; +LEXAPRO20 MG PO; +LIDOCAINE HCL 2% LOCAL 20 ML VIAL ONE; +MELOXICAM7.5 MG PO; +METFORMIN HCL500 MG PO; +METOPROLOL TART50 MG PO; +MIDAZOLAM HCL 2 MG/2 ML VIAL ONE; +SODIUM CHLORIDE 0.9% 1000ML 1,000 ML ONE; +VERAPAMIL HCL 2.5 MG/ML 2 ML VIAL ONE
== END | disposition home or self-care (01) ==
LOC: CATH LAB 11:19
PROVIDERS: ATTEND Internal Medicine Interventional Cardiology
DX: I25.119 Atherosclerotic heart disease of native coronary artery with unspecified angina pectoris (principal); R94.39 Abnormal result of other cardiovascular function study; I50.22 Chronic systolic (congestive) heart failure; G47.33 Obstructive sleep apnea (adult) (pediatric); B02.9 Zoster without complications; Z01.812 Encounter for preprocedural laboratory examination; Z11.59 Encounter for screening for other viral diseases; Z79.82 Long term (current) use of aspirin; Z79.84 Long term (current) use of oral hypoglycemic drugs; Z68.35 Body mass index [BMI] 35.0-35.9, adult; Z86.79 Personal history of other diseases of the circulatory system; Z95.810 Presence of automatic (implantable) cardiac defibrillator
CPT/HCPCS: 36415 ×2; 76937; 80053; 82948; 85025; 93454; C1769; C1887; J2001; J2250; J3010; J7030; Q9967; U0002; 99152

== ENCOUNTER → 2020-05-12 | Outpatient (CLI) | payer OTHER ==
[~2020-05-12] MED LIST changes: -ALPRAZOLAM 0.5 MG TAB ONE; -DIPHENHYDRAMINE HCL 25 MG CAP ONE; -FENTANYL CITRATE/PF 100MCG/2 ML INJ ONE; -HEPARIN SOD/SOD CHLORIDE 2,000 ML ONE; -IOPAMIDOL 370 MG/ML 200 ML INFUS..BTL INJ ONE; -LIDOCAINE HCL 2% LOCAL 20 ML VIAL ONE; -MIDAZOLAM HCL 2 MG/2 ML VIAL ONE; -SODIUM CHLORIDE 0.9% 1000ML 1,000 ML ONE; -VERAPAMIL HCL 2.5 MG/ML 2 ML VIAL ONE
== END ==
LOC: MAMMO 08:35
PROVIDERS: ATTEND Internal Medicine
DX: Z12.31 Encounter for screening mammogram for malignant neoplasm of breast (principal)
CPT/HCPCS: 77067

== ENCOUNTER → 2021-12-29 | Outpatient (CLI) | payer MEDICARE | LOC: MAMMO 11:35 | PROVIDERS: ATTEND Internal Medicine | DX: Z12.31 Encounter for screening mammogram for malignant neoplasm of breast (principal) | CPT/HCPCS: 77067 ==